=== PATIENT | male | born 1975 ===

== ENCOUNTER 2017-12-13 07:00 | Day surgery (SDC) | payer OTHER ==
[~2017-12-13] VITALS: Ht 185.4 cm; Wt 86.2 kg
[2017-12-13] MEDS ORDERED: CLONAZEPAM1 MG PO (12:32)
[2017-12-13] MEDS ORDERED: NEURONTIN800 MG PO (12:32)
[2017-12-13] MEDS ORDERED: PERCOCET 5-3251 EACH PO (12:32)
[2017-12-13] MEDS ORDERED: COLACE100 MG PO (12:32)
[2017-12-13] MEDS ORDERED: AMOX-CLAV 875-1 EACH PO (12:32)
== END 2017-12-14 08:00 | disposition home or self-care (01) ==
LOC: CIR.AMB 07:00 → O/R 07:00 → EDSTATUS 08:15 → O/R 08:15 → EDBD 08:15 → O/R 10:00 → PED 13:25 → CIR.AMB 12-14 08:00 → PED 12-14 14:37
DX: M48.061 Spinal stenosis, lumbar region without neurogenic claudication (principal); M51.16 Intervertebral disc disorders with radiculopathy, lumbar region